=== PATIENT | male | born 1955 | race Hispanic/Latino ===

== ENCOUNTER 2016-05-03 23:07 | Emergency (ER) | payer MEDICAID ==
[~2016-05-03] VITALS: Ht 157.5 cm; Wt 73.0 kg
[~2016-05-03 23:07] MED LIST: AMLODIPINE BESYL5 MG PO; ASPIRIN CHEWABL81 MG PO; ATORVASTATIN CA10 MG PO; GLUCOPHAGE500 MG PO; LEVEMIR1000 UNITS SC; LISINOPRIL20 MG PO; OMEPRAZOLE20 MG PO
[2016-05-04 01:33] LABS: URINE BILIRUBIN - DIPSTICK NEGATIVE (NEGATIVE); URINE BLOOD DIPSTICK MODERATE (NEGATIVE); URINE CLARITY CLEAR; URINE COLOR YELLOW; URINE GLUCOSE - DIPSTICK 500 mg/dL (NEGATIVE); URINE KETONE NEGATIVE (NEGATIVE); URINE LEUK ESTERASE NEGATIVE (NEGATIVE); URINE NITRITE - DIPSTICK NEGATIVE (Negative); URINE PH 6.5 (4.5-8.0); URINE PROTEIN - DIPSTICK >=300 mg/dL (NEG-TRACE); URINE UROBILINOGEN - DIPSTICK 0.2 E.U./dL (0.2)
[2016-05-04 01:44] LABS: ALBUMIN 3.6 g/dL (3.2-5.0); BILIRUBIN, TOTAL 0.4 mg/dL (0.0-1.4); CALCIUM 8.5 mg/dL (8.4-10.2); CREATININE 1.5 mg/dL (0.7-1.3); POTASSIUM 3.6 mmol/l (3.5-5.1); TOTAL PROTEIN 7.8 g/dL (6.3-8.2)
[2016-05-04 01:48] LABS: URINE SQUAMOUS EPITHELIAL CELL RARE EPI/hpf (0-FEW); URINE WBC 0-2 WBC/hpf (0-5)
[2016-05-04 01:54] LABS: HEMATOCRIT 32.6 % (39.0-50.0); HEMOGLOBIN 12.4 g/dl (14.0-18.0); IMMATURE GRANULOCYTES 0.3 % (0.0-1.0); MEAN CELL VOLUME 78.6 fL CALC (80.0-100.0); MEAN CORPUSCULAR HGB 29.9 pG CALC (26.0-32.0); NEUT# 6.35 thou/uL (1.82-7.42); RED BLOOD COUNT 4.15 mill/uL (4.70-6.10); RED CELL DISTRI WIDTH 13.1 % (11.5-15.5)
[2016-05-04 07:32] VITALS: BP 167/83
== END 2016-05-04 07:29 | disposition home or self-care (01) | DRG 103 ==
LOC: ED 23:07
PROVIDERS: Emergency Medicine
DX: R51 Headache (principal); I10 Essential (primary) hypertension; E11.9 Type 2 diabetes mellitus without complications

== ENCOUNTER 2016-12-24 10:52 | Emergency (ER) | payer MEDICAID ==
[~2016-12-24] VITALS: Ht 157.5 cm; Wt 70.4 kg
[2016-12-24] MEDS ORDERED: RANITIDINE150 M1 PO (12:05)
[2016-12-24] MEDS ORDERED: LOSARTAN POT50 MG PO (12:06)
[2016-12-24] MEDS ORDERED: NORVASC5 M1 PO (12:06)
[2016-12-24] MEDS ORDERED: [UNRECOGNIZED DRUG - OTHER] (12:06)
[2016-12-24 13:53] LABS: HEMATOCRIT 26.5 % (39.0-50.0); HEMOGLOBIN 9.3 g/dl (14.0-18.0); IMMATURE GRANULOCYTES 1.2 % (0.0-1.0); MEAN CORPUSCULAR HGB 30.2 pG CALC (26.0-32.0); MEAN CORPUSCULAR HGB CONC 35.1 g/L CALC (32.0-36.0); NEUT# 4.14 thou/uL (1.82-7.42); RED BLOOD COUNT 3.08 mill/uL (4.70-6.10); RED CELL DISTRI WIDTH 13.7 % (11.5-15.5)
[2016-12-24 14:04] LABS: CALCIUM 8.4 mg/dL (8.4-10.2); CREATININE 4.2 mg/dL (0.7-1.3); MAGNESIUM 2.3 mg/dL (1.6-2.3)
[2016-12-24 14:05] LABS: POTASSIUM 5.3 mmol/l (3.5-5.1)
[2016-12-24 14:27] LABS: BILIRUBIN, TOTAL 0.4 mg/dL (0.0-1.4); TOTAL PROTEIN 6.5 g/dL (6.3-8.2)
[2016-12-24 15:16] VITALS: BP 165/51
== END 2016-12-24 15:05 | DRG 684 ==
LOC: ED 10:52
PROVIDERS: Emergency Medicine
DX: N17.9 Acute kidney failure, unspecified (principal); E11.9 Type 2 diabetes mellitus without complications; R06.02 Shortness of breath; R60.1 Generalized edema; R94.31 Abnormal electrocardiogram [ECG] [EKG]; Z79.4 Long term (current) use of insulin; I10 Essential (primary) hypertension

== ENCOUNTER 2017-10-05 18:53 | Emergency (ER) | payer MEDICAID ==
[~2017-10-05] VITALS: Ht 157.5 cm; Wt 73.0 kg
[~2017-10-05 18:53] MED LIST changes: +LOSARTAN POT50 MG PO; +NORVASC5 M1 PO; +RANITIDINE150 M1 PO; +[UNRECOGNIZED DRUG - OTHER]
[2017-10-05 19:26] LABS: IMMATURE GRANULOCYTES 0.3 % (0.0-5.0); MEAN CELL VOLUME 85.1 fL CALC (80.0-100.0); MEAN CORPUSCULAR HGB 27.2 pG CALC (26.0-32.0); MEAN CORPUSCULAR HGB CONC 31.9 g/L CALC (32.0-36.0); NEUT# 7.35 thou/uL (1.82-7.42); RED BLOOD COUNT 4.23 mill/uL (4.70-6.10); RED CELL DISTRI WIDTH 13.8 % (11.5-15.5)
[2017-10-05 19:27] LABS: HEMOGLOBIN 11.5 g/dl (14.0-18.0)
[2017-10-05 19:33] LABS: BILIRUBIN, TOTAL 0.6 mg/dL (0.0-1.4); BUN 46 mg/dL (8-23); POTASSIUM 5.1 mmol/l (3.5-5.1); SGOT/AST 24 u/l (19-48); SGPT/ALT 36 u/l (11-66); SODIUM 144 mmol/l (137-146)
[2017-10-05 19:38] LABS: ACT PARTIAL THROMBO TIME 29.6 SECONDS (20.0-32.5); INTERNATIONAL NORMALIZED RATIO 1.1 RATIO (0.7-1.3)
[2017-10-05 19:42] LABS: ALBUMIN 4.6 g/dL (3.2-5.0); ALKALINE PHOSPHATASE 187 u/l (38-126); ANION GAP 23 (6-22 (CALC)); BUN/CREATININE RATIO 7 (12-20 (CALC)); CARBON DIOXIDE 24 mmol/l (22-30); CHLORIDE 102 mmol/l (95-108); CREATININE 6.7 mg/dL (0.7-1.3); GFR 8 ML/MIN (>=60 (CALC)); GFR FOR AFR.AMER. 10 ML/MIN (>=60 (CALC)); MYOGLOBIN 373 ng/mL (0 - 121); TOTAL PROTEIN 9.1 g/dL (6.3-8.2)
[2017-10-05 23:07] VITALS: BP 118/58
== END 2017-10-05 23:06 | disposition short-term general hospital (02) ==
LOC: ED 18:53
PROVIDERS: Emergency Medicine
DX: J81.0 Acute pulmonary edema (principal); J18.9 Pneumonia, unspecified organism; I12.0 Hypertensive chronic kidney disease with stage 5 chronic kidney disease or end stage renal disease; N18.6 End stage renal disease; Z99.2 Dependence on renal dialysis; J91.8 Pleural effusion in other conditions classified elsewhere

== ENCOUNTER 2017-12-16 04:09 | Emergency (ER) | payer MEDICAID ==
[~2017-12-16] VITALS: Ht 157.5 cm; Wt 60.0 kg
[2017-12-16 05:04] LABS: INFLUENZA A NONE DETECTED (NONE DETECT); INFLUENZA B NONE DETECTED (NONE DETECT)
[2017-12-16 06:34] LABS: HEMATOCRIT 34.4 % (39.0-50.0); HEMOGLOBIN 11.4 g/dl (14.0-18.0); IMMATURE GRANULOCYTES 0.3 % (0.0-5.0); MEAN CELL VOLUME 84.9 fL CALC (80.0-100.0); MEAN CORPUSCULAR HGB 28.1 pG CALC (26.0-32.0); MEAN CORPUSCULAR HGB CONC 33.1 g/L CALC (32.0-36.0); NEUT# 4.18 thou/uL (1.82-7.42); RED BLOOD COUNT 4.05 mill/uL (4.70-6.10); RED CELL DISTRI WIDTH 21.2 % (11.5-15.5)
[2017-12-16 06:36] LABS: ALBUMIN 3.9 g/dL (3.2-5.0); BILIRUBIN, TOTAL 0.7 mg/dL (0.0-1.4); TOTAL PROTEIN 7.3 g/dL (6.3-8.2)
[2017-12-16 06:46] LABS: CREATININE 7.7 mg/dL (0.7-1.3); POTASSIUM 5.7 mmol/l (3.5-5.1)
[2017-12-16 09:44] VITALS: BP 186/73
== END 2017-12-16 09:44 | disposition short-term general hospital (02) ==
LOC: ED 04:09
PROVIDERS: Emergency Medicine
DX: I11.0 Hypertensive heart disease with heart failure (principal); I50.9 Heart failure, unspecified; J18.9 Pneumonia, unspecified organism; I16.1 Hypertensive emergency; R05 Cough; R09.89 Other specified symptoms and signs involving the circulatory and respiratory systems; R50.9 Fever, unspecified; R52 Pain, unspecified; J02.9 Acute pharyngitis, unspecified

== ENCOUNTER 2018-04-16 13:13 | Emergency (ER) | payer MEDICAID ==
[~2018-04-16] VITALS: Ht 157.5 cm; Wt 70.0 kg
[2018-04-16 14:25] LABS: HEMATOCRIT 32.2 % (39.0-50.0); IMMATURE GRANULOCYTES 0.4 % (0.0-5.0); MEAN CELL VOLUME 89.4 fL CALC (80.0-100.0); MEAN CORPUSCULAR HGB 30.6 pG CALC (26.0-32.0); MEAN CORPUSCULAR HGB CONC 34.2 g/L CALC (32.0-36.0); NEUT# 3.56 thou/uL (1.82-7.42); RED BLOOD COUNT 3.6 mill/uL (4.70-6.10)
[2018-04-16 16:07] LABS: ALBUMIN 3.5 g/dL (3.2-5.0); BILIRUBIN, TOTAL 0.6 mg/dL (0.0-1.4); TOTAL PROTEIN 6.9 g/dL (6.3-8.2)
[2018-04-16 16:21] LABS: POTASSIUM 4.1 mmol/l (3.5-5.1)
[2018-04-16 17:51] VITALS: BP 208/108
== END 2018-04-16 17:15 | disposition short-term general hospital (02) ==
LOC: ED 13:13
PROVIDERS: Emergency Medicine
DX: R07.9 Chest pain, unspecified (principal); I12.0 Hypertensive chronic kidney disease with stage 5 chronic kidney disease or end stage renal disease; N18.6 End stage renal disease; J18.9 Pneumonia, unspecified organism; Z99.2 Dependence on renal dialysis

== ENCOUNTER 2018-07-29 10:16 | Emergency (ER) | payer MEDICAID ==
[~2018-07-29] VITALS: Ht 157.5 cm; Wt 62.0 kg
[2018-07-29 11:00] LABS: HEMOGLOBIN 11.3 g/dl (14.0-18.0); IMMATURE GRANULOCYTES 0.3 % (0.0-5.0); MEAN CELL VOLUME 92.6 fL CALC (80.0-100.0); MEAN CORPUSCULAR HGB 30.8 pG CALC (26.0-32.0); MEAN CORPUSCULAR HGB CONC 33.2 g/L CALC (32.0-36.0); NEUT# 4.77 thou/uL (1.82-7.42); RED BLOOD COUNT 3.67 mill/uL (4.70-6.10); RED CELL DISTRI WIDTH 14.1 % (11.5-15.5)
[2018-07-29 11:20] LABS: BILIRUBIN, TOTAL 0.7 mg/dL (0.0-1.4); TOTAL PROTEIN 7.5 g/dL (6.3-8.2)
[2018-07-29 11:24] LABS: ALBUMIN 4.3 g/dL (3.2-5.0); CREATININE 5.7 mg/dL (0.7-1.3); POTASSIUM 5.4 mmol/l (3.5-5.1)
[2018-07-29] MEDS ORDERED: TORADOL PO (12:15)
[2018-07-29 12:52] VITALS: BP 129/58
== END 2018-07-29 12:52 | disposition home or self-care (01) ==
LOC: ED 10:16
PROVIDERS: Emergency Medicine
DX: M50.11 Cervical disc disorder with radiculopathy, high cervical region (principal); J90 Pleural effusion, not elsewhere classified; M79.602 Pain in left arm; I10 Essential (primary) hypertension
CPT/HCPCS: Q9967

== ENCOUNTER 2018-12-02 14:39 | Emergency (ER) | payer MEDICAID ==
[~2018-12-02] VITALS: Ht 157.5 cm; Wt 60.0 kg
[~2018-12-02 14:39] MED LIST changes: +AMLODIPINE10 MG PO; +CLOPIDOGREL75 MG PO; +DOXYCYC MONO100 M1 PO; +JANUMET1 TA1 PO; +LASIX 40 MG TAB40 MG PO; +LOSARTAN POTASS50 MG PO; +NIFEDIPINE10 M1 PO; +NIFEDIPINE30 MG PO; +NOVOLIN 70/30 SC; +PROTONIX40 M2 PO; +ROBITUSSIN AC10 ML PO; +TORADOL PO; +ULTRAM50 M1 PO; +ZESTRIL/PRI20 MG/TAB PO; +catapres PO
[2018-12-02 15:22] LABS: HEMATOCRIT 33.4 % (39.0-50.0); HEMOGLOBIN 11.2 g/dl (14.0-18.0); IMMATURE GRANULOCYTES 0.4 % (0.0-5.0); MEAN CELL VOLUME 90.3 fL CALC (80.0-100.0); MEAN CORPUSCULAR HGB 30.3 pG CALC (26.0-32.0); MEAN CORPUSCULAR HGB CONC 33.5 g/L CALC (32.0-36.0); NEUT# 3.73 thou/uL (1.82-7.42); RED BLOOD COUNT 3.7 mill/uL (4.70-6.10); RED CELL DISTRI WIDTH 14.3 % (11.5-15.5)
[2018-12-02 15:42] LABS: BILIRUBIN, TOTAL 0.7 mg/dL (0.0-1.4); POTASSIUM 4.8 mmol/l (3.5-5.1); TOTAL PROTEIN 7.4 g/dL (6.3-8.2)
[2018-12-02 15:58] LABS: CREATININE 4.1 mg/dL (0.7-1.3)
[2018-12-02 21:15] VITALS: BP 168/74
== END 2018-12-02 21:21 | disposition short-term general hospital (02) ==
LOC: ED 14:39
PROVIDERS: Family Medicine
DX: J18.1 Lobar pneumonia, unspecified organism (principal); J91.8 Pleural effusion in other conditions classified elsewhere; E11.65 Type 2 diabetes mellitus with hyperglycemia; E11.22 Type 2 diabetes mellitus with diabetic chronic kidney disease; I12.0 Hypertensive chronic kidney disease with stage 5 chronic kidney disease or end stage renal disease; N18.6 End stage renal disease; Z99.2 Dependence on renal dialysis; Z79.4 Long term (current) use of insulin

== ENCOUNTER 2018-12-26 11:01 | Emergency (ER) | payer MEDICAID ==
[~2018-12-26] VITALS: Ht 152.4 cm; Wt 62.0 kg
[2018-12-26 11:44] LABS: HEMATOCRIT 34.3 % (39.0-50.0); HEMOGLOBIN 11.8 g/dl (14.0-18.0); IMMATURE GRANULOCYTES 0.2 % (0.0-5.0); MEAN CELL VOLUME 89.3 fL CALC (80.0-100.0); MEAN CORPUSCULAR HGB 30.7 pG CALC (26.0-32.0); MEAN CORPUSCULAR HGB CONC 34.4 g/L CALC (32.0-36.0); NEUT# 3.68 thou/uL (1.82-7.42); RED BLOOD COUNT 3.84 mill/uL (4.70-6.10); RED CELL DISTRI WIDTH 14.4 % (11.5-15.5)
[2018-12-26 12:05] LABS: ALBUMIN 4.6 g/dL (3.2-5.0); BILIRUBIN, TOTAL 0.9 mg/dL (0.0-1.4); POTASSIUM 3.9 mmol/l (3.5-5.1)
[2018-12-26 12:06] LABS: CREATININE 2.1 mg/dL (0.7-1.3)
[2018-12-26] MEDS ORDERED: LABETALOL200 MG PO (12:23)
[2018-12-26] MEDS ORDERED: LEVEMIR FL100 UNIT/M SC (12:23)
[2018-12-26] MEDS ORDERED: PROCARDIA XL60 MG PO (12:23)
[2018-12-26] MEDS ORDERED: TUMS500 MG PO (12:24)
[2018-12-26 18:46] VITALS: BP 189/86
== END 2018-12-26 18:46 ==
LOC: ED 11:01 → ED-I 16:37 → ED 18:46
PROVIDERS: Emergency Medicine
DX: I12.0 Hypertensive chronic kidney disease with stage 5 chronic kidney disease or end stage renal disease (principal); N18.6 End stage renal disease

== ENCOUNTER 2019-03-20 | Emergency (ER) | payer MEDICARE, MEDICAID ==
[~2019-03-20] MED LIST changes: +LABETALOL200 MG PO; +LEVEMIR FL100 UNIT/M SC; +PROCARDIA XL60 MG PO; +TUMS500 MG PO
[2019-03-20 10:21] LABS: HEMATOCRIT 30.9 % (39.0-50.0); HEMOGLOBIN 10.6 g/dl (14.0-18.0); IMMATURE GRANULOCYTES 0.2 % (0.0-5.0); MEAN CELL VOLUME 91.2 fL CALC (80.0-100.0); MEAN CORPUSCULAR HGB 31.3 pG CALC (26.0-32.0); MEAN CORPUSCULAR HGB CONC 34.3 g/L CALC (32.0-36.0); NEUT# 3.53 thou/uL (1.82-7.42); RED BLOOD COUNT 3.39 mill/uL (4.70-6.10); RED CELL DISTRI WIDTH 14.3 % (11.5-15.5)
[2019-03-20 10:25] LABS: ACT PARTIAL THROMBO TIME 31.4 SECONDS (20.0-32.5); INTERNATIONAL NORMALIZED RATIO 1.2 RATIO (0.7-1.3)
[2019-03-20 10:27] LABS: ALBUMIN 4.1 g/dL (3.2-5.0); BUN 35 mg/dL (8-23); CHLORIDE 95 mmol/l (95-108); SGOT/AST 36 u/l (19-48); SODIUM 132 mmol/l (137-146); TOTAL PROTEIN 8.2 g/dL (6.3-8.2)
[2019-03-20 10:45] LABS: ALKALINE PHOSPHATASE 401 u/l (38-126); ANION GAP 17 (6-22 (CALC)); BUN/CREATININE RATIO 10 (12-20 (CALC)); CARBON DIOXIDE 24 mmol/l (22-30); CREATININE 3.5 mg/dL (0.7-1.3); GFR 18 ML/MIN (>=60 (CALC)); GFR FOR AFR.AMER. 21 ML/MIN (>=60 (CALC))
== END 2019-03-20 12:50 | disposition short-term general hospital (02) ==
DX: I16.0 Hypertensive urgency (principal); I13.2 Hypertensive heart and chronic kidney disease with heart failure and with stage 5 chronic kidney disease, or end stage renal disease; N17.9 Acute kidney failure, unspecified; I50.9 Heart failure, unspecified; E11.22 Type 2 diabetes mellitus with diabetic chronic kidney disease; N18.6 End stage renal disease; Z99.2 Dependence on renal dialysis; Z79.4 Long term (current) use of insulin

== ENCOUNTER 2019-06-04 | Emergency (ER) | payer MEDICARE, MEDICAID ==
[2019-06-04 19:40] LABS: HEMATOCRIT 33.7 % (39.0-50.0); MEAN CELL VOLUME 87.3 fL CALC (80.0-100.0); MEAN CORPUSCULAR HGB 31.1 pG CALC (26.0-32.0); MEAN CORPUSCULAR HGB CONC 35.6 g/dL CAL (32.0-36.0); NEUT# 3.79 thou/uL (1.82-7.42); RED BLOOD COUNT 3.86 mill/uL (4.70-6.10); RED CELL DISTRI WIDTH 13.4 % (11.5-15.5)
[2019-06-04] MEDS ORDERED: HYDRALAZINE HC100 MG PO (19:59)
[2019-06-04 20:14] LABS: ALBUMIN 4.3 g/dL (3.2-5.0); BILIRUBIN, TOTAL 0.9 mg/dL (0.0-1.4); POTASSIUM 4.3 mmol/l (3.5-5.1); TOTAL PROTEIN 7.8 g/dL (6.3-8.2)
[2019-06-04 20:22] LABS: CREATININE 4.9 mg/dL (0.7-1.3)
[2019-06-04] MEDS ORDERED: ZOFRAN4 MG/TAB PO (22:48)
== END 2019-06-04 23:10 | disposition home or self-care (01) ==
PROVIDERS: Family Medicine
DX: E11.65 Type 2 diabetes mellitus with hyperglycemia (principal); I12.0 Hypertensive chronic kidney disease with stage 5 chronic kidney disease or end stage renal disease; E11.22 Type 2 diabetes mellitus with diabetic chronic kidney disease; N18.6 End stage renal disease; Z99.2 Dependence on renal dialysis; Z79.4 Long term (current) use of insulin